=== PATIENT | female | born 1965 | race Caucasian/White ===

== ENCOUNTER 2018-07-30 21:00 | Emergency (ER) | payer OTHER ==
[2018-07-30] MEDS ORDERED: Ketorolac Tromethamine 30 MG/ML VIAL ONE (21:42)
[2018-07-30] MEDS ORDERED: Dexamethasone 10 MG/ML VIAL ONE (21:42)
[2018-07-30] MEDS ORDERED: Clindamycin/D5W 900 mg/50 ml Premix Bag ONE (21:42)
== END 2018-07-30 23:17 | disposition home or self-care (01) ==
LOC: ERS 21:00
DX: L03.211 Cellulitis of face (principal); R22.0 Localized swelling, mass and lump, head; I10 Essential (primary) hypertension; E78.5 Hyperlipidemia, unspecified; F17.210 Nicotine dependence, cigarettes, uncomplicated; Z79.899 Other long term (current) drug therapy; Z79.84 Long term (current) use of oral hypoglycemic drugs
CPT/HCPCS: 96365; 96375; J1100; J1885; J3490

== ENCOUNTER 2018-10-12 18:56 | Emergency (ER) | payer OTHER ==
[2018-10-12] MEDS ORDERED: Lidocaine 1% w/Epinephrine 1:100K 20 ML VIAL ONE ×2 (19:40→19:44)
[2018-10-12] MEDS ORDERED: Adacel (T-DAP) 0.5 ML VIAL ONE (19:44)
== END 2018-10-12 20:03 | disposition home or self-care (01) ==
LOC: ERS 18:56
DX: S41.112A Laceration without foreign body of left upper arm, initial encounter (principal); I10 Essential (primary) hypertension; E78.5 Hyperlipidemia, unspecified; E23.2 Diabetes insipidus; F17.210 Nicotine dependence, cigarettes, uncomplicated; W25.XXXA Contact with sharp glass, initial encounter
CPT/HCPCS: 12001; 90471; 90715; J2001

== ENCOUNTER 2018-10-12 22:24 | Emergency (ER) | payer OTHER ==
[2018-10-12] MEDS ORDERED: Lidocaine 1% w/Epinephrine 1:100K 20 ML VIAL ONE (23:12)
== END 2018-10-12 23:30 | disposition home or self-care (01) ==
LOC: ERS 22:24
DX: T81.30XA Disruption of wound, unspecified, initial encounter (principal); I10 Essential (primary) hypertension; E11.9 Type 2 diabetes mellitus without complications; F17.210 Nicotine dependence, cigarettes, uncomplicated
CPT/HCPCS: 12020; 90715; J2001

== ENCOUNTER 2019-06-14 15:03 | Outpatient (CLI) | payer OTHER ==
--- NOTE | 2019-06-14 20:06 | CT ---
CT OF THE PARANASAL SINUSES: 06/14/19 COMPARISON: 02/03/16 HISTORY: Chronic sinusitis, prior pituitary surgery. TECHNIQUE: Axial CT imaging at 2.5 mm interval through the paranasal sinuses with coronal and sagittal reformatt ed imaging. FINDINGS: The imaged brain parenchyma appears grossly unremarkable. There is evidence of a prior right sided cr aniotomy. The frontal sinuses are well aerated. The patient appears status post bilateral ethmoidecto my. Ethmoid air cells, sphenoid sinuses, and maxillary sinuses are clear. There is near complete opac ification of the mastoid air cells on the left. The mastoid air cells on the right are clear. The patient is status post bilateral uncinectomy and medial antrostomy. The orbital floor and the medial orbital wall appears intact. No acute osseous abnormality is seen. The sella turcica is not well assessed on this examination. Brain MRI would be required to evaluate p ostoperative changes at the level of the sella turcica. There is soft tissue density in the suprasell ar cistern which appears similar when compared to a brain MRI performed 09/09/16. There is a 1.1 cm round mass in the region of the superficial lobe right parotid gland posteriorly. IMPRESSION: 1. Opacified mastoid air cells on the left. 2. Paranasal sinuses are clear. There is evidence of prior paranasal sinus surgery. 3. Soft tissue density seen in the suprasellar region measuring approximately 7-8 mm in AP dimen ivette, as seen on 09/09/16 brain MRI. 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 Of note, the opacification of the left mastoid air cells is a new finding when compared to 09/09/16 b rain MRI. 4. Soft tissue round mass within the parotid gland on the right measuring 1.1 cm. Recommend furt her assessment via CT of the neck with IV contrast. Code T POS: OFF
== END 2019-06-14 15:04 | disposition home or self-care (01) ==
LOC: CT 15:03
PROVIDERS: ATTEND Otolaryngology Plastic Surgery within the Head & Neck
DX: J01.81 Other acute recurrent sinusitis (principal); K11.8 Other diseases of salivary glands; R93.0 Abnormal findings on diagnostic imaging of skull and head, not elsewhere classified; Z98.890 Other specified postprocedural states

== ENCOUNTER 2019-08-16 12:03 | Outpatient (CLI) | payer OTHER ==
[2019-08-16] MEDS ORDERED: Gadobenate Dimeglumine 529 MG/1 ML (20ML VIAL) ONE (12:52)
--- NOTE | 2019-08-16 14:18 | MRI ---
MRI BRAIN WITH AND WITHOUT CONTRAST: Date: 08/16/19 INDICATION: Follow-up benign neoplasm of brain. Comparison made to prior MRI brain dated 09/09/16 and 07/06/14. FINDINGS: Ventricles have normal size and position. The suprasellar mass lesion is again seen. This suprasellar mass shows high T1 signal and measures 8 mm AP dimension. It is unchanged in size and appearance whe n compared to the prior study. No abnormal enhancement identified. No significant white matter abnormality. Intracranial internal carotid arteries and cerebral arteries show expected flow-voids. New on today's exam is diffuse mucosal edema in the left mastoid air cells. Paranasal sinuses appear clear. IMPRESSION: 1. 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 2. Diffuse mucosal edema in the left mastoid air cells is seen today, a new finding. POS: [facility]
== END 2019-08-16 12:04 | disposition home or self-care (01) ==
LOC: BICMRI 12:03
PROVIDERS: ATTEND Specialist
DX: G43.909 Migraine, unspecified, not intractable, without status migrainosus (principal); R41.3 Other amnesia; G93.89 Other specified disorders of brain; H74.8X2 Other specified disorders of left middle ear and mastoid; Z86.011 Personal history of benign neoplasm of the brain
CPT/HCPCS: 70553; 82565; A9577

== ENCOUNTER 2019-10-05 14:40 | Outpatient (CLI) | payer OTHER ==
--- NOTE | 2019-10-05 15:35 | RAD ---
PA AND LATERAL VIEWS CHEST: 10/05/19 HISTORY: Cough and shortness of breath. Chest pain. FINDINGS: The heart size is normal. The lungs are expanded without area of consolidation, pneumothoraces or ple ural effusions. No acute osseous abnormalities are seen. IMPRESSION: No radiographic evidence of acute cardiopulmonary process. POS: OFF
== END 2019-10-05 14:41 | disposition home or self-care (01) ==
LOC: BICRAD 14:40
PROVIDERS: ATTEND Nurse Practitioner Family
DX: R05 Cough (principal); R06.02 Shortness of breath
CPT/HCPCS: 71046

== ENCOUNTER 2019-10-19 11:06 | Emergency (ER) | payer OTHER ==
[2019-10-19] MEDS ORDERED: Iopamidol-370 76% 500 ML 1 ML ONE (11:48)
[2019-10-19] MEDS ORDERED: Clindamycin/D5W 900 mg/50 ml Premix Bag ONE (13:39)
[2019-10-19] MEDS ORDERED: HYDROcodone/Acetaminophen 5/325 mg Tablet ONE (13:39)
[2019-10-19 14:00] LABS: Mean Corpuscular HGB CONC 33.2 g/dL (32.0-36.0); Mean Corpuscular Hemoglobin 30.5 pg (27.0-31.0); Mean Corpuscular Volume 91.9 fL (78.0-98.0); Mean Platelet Volume 8.1 fL (7.4-10.4); Platelet Count 283 thou/uL (130-400); RBC Distribution Width 16.2 % (11.5-14.5); Red Blood Cell (RBC) Count 4.25 mill/uL (4.20-5.40); White Blood Cell (WBC) Count 14.7 thou/uL (4.8-10.8)
[2019-10-19 14:27] LABS: Anisocytosis SLIGHT = 6-15 cells (100X) (0-5/hpf); Band 9 % (5-11); Eosinophils 1 % (0-10); Lymphocytes 12 % (21-51); MDiff Complete? YES; Monocytes 6 % (0-10); Neutrophil 72 % (42-75); Ovalocytes SLIGHT = 2-5 cells (100X) (0-1/hpf); Platelet Morphology Comment Appears Adequate
[2019-10-19 15:31] LABS: Chloride 106 mmol/L (98-107); Potassium 3.3 mmol/L (3.5-5.1); Sodium 140 mmol/L (136-145)
[2019-10-19 15:32] LABS: Calcium 9.2 mg/dL (7.8-10.44); Glucose 89 mg/dL (70-105)
[2019-10-19 15:34] LABS: Anion Gap 12 mmol/L (10-20); Carbon Dioxide 25 mmol/L (22-29)
[2019-10-19 15:36] LABS: BUN (Urea Nitrogen) 16 mg/dL (9.8-20.1); Calc. Creatinine Clearance 0 mL/min (70-130); Estimated GFR-MDRD 71
--- NOTE | 2019-10-19 16:39 | CT ---
CT FACIAL BONES WITH CONTRAST: Date: 10/19/19 INDICATION: Left facial swelling and tenderness. FINDINGS: Soft tissue windows show fluid density along the buccal surface of the left maxilla. There is hazines s in the subcutaneous adipose tissue at this location also seen consistent with edema and inflammatio n. Bone windows show abnormal lucency in the roots of the first maxillary premolar on the left. There is cortical erosion from the lateral root along the buccal surface. Findings are consistent with periap ical abscess with buccal extension. Paranasal sinuses are well aerated. There is mild mucosal edema in the left maxillary sinus periphera lly. There is evidence of prior sinus surgery with anteromeatal windows. Mild septal deviation to the right. There are postoperative changes involving the right frontal bone. IMPRESSION: Evidence of periapical abscess involving the first maxillary premolar on the left with buccal extensi on. Small abscess along the buccal surface of the left maxilla at this location is seen. Small fluid/ abscess collection measures approximately 3 x 12 mm in axial plane. There is overlying subcutaneous h aziness consistent with inflammation. POS: [facility]
== END 2019-10-19 16:11 | disposition home or self-care (01) ==
LOC: ERS 11:06
DX: K04.7 Periapical abscess without sinus (principal)
CPT/HCPCS: 70487; 80048; 85025; 96365; J3490; Q9967

== ENCOUNTER 2020-03-21 15:02 | Outpatient (CLI) | payer OTHER ==
--- NOTE | 2020-03-21 15:27 | RAD ---
Cervical spine 3 views HISTORY: Pain. FINDINGS: Vertebral body heights are maintained. Minimal physiologic anterior listhesis at the C5-6 l evel. Disc space narrowing at the C6-7 and C7-T1 levels. Mild osteophytosis throughout. No acute fracture or dislocation. No aggressive osseous erosions. IMPRESSION : Mild osteoarthritic changes. No acute osseous abnormalities are demonstrated.
== END 2020-03-21 15:03 | disposition home or self-care (01) ==
LOC: BICRAD 15:02
PROVIDERS: ATTEND Specialist
DX: M54.2 Cervicalgia (principal); M47.812 Spondylosis without myelopathy or radiculopathy, cervical region
CPT/HCPCS: 72040

== ENCOUNTER 2020-07-23 19:01 | Emergency (ER) | payer OTHER ==
[2020-07-23] MEDS ORDERED: Ketorolac Tromethamine 30 MG/ML VIAL ONE (20:30)
[2020-07-23] MEDS ORDERED: Morphine 4 MG/ML VIAL ONE (20:30)
--- NOTE | 2020-07-23 20:53 | CT ---
CT BRAIN PERFORMED WITHOUT CONTRAST ENHANCEMENT: History: Multiple falls in the last week, headache. Back and neck pain. FINDINGS: There is mild ventricular and sulcal prominence. There are no signs of intracerebral hemorrhage or ex traaxial fluid collections. Right frontal craniotomy changes noted. Mastoid air cells and visualized sinuses are clear. IMPRESSION: No acute intracranial abnormalities. POS: OFF
--- NOTE | 2020-07-23 20:58 | CT ---
CT OF CERVICAL SPINE PERFORMED WITHOUT CONTRAST ENHANCEMENT: History: Multiple falls in the last week. Patient has neck pain. FINDINGS: The bones appear somewhat demineralized. The vertebral bodies maintain normal height. There is disc n arrowing at the C3-4 level and an anterolisthesis of approximately 4 mm. There are degenerative facet changes which are most pronounced on the right side at the C3-4 level. There is also disc narrowing at C6-7. There is no evidence of any central canal stenosis. No significant foraminal narrowing. No C T evidence for fracture. The lung apices appear clear. IMPRESSION: No CT evidence of fracture of the cervical spine. POS: OFF
--- NOTE | 2020-07-23 20:59 | RAD ---
PORTABLE CHEST: History: Multiple falls. FINDINGS: Heart size and mediastinum are within normal limits. The lungs are clear of any infiltrates. No rib f ractures. IMPRESSION: No active intrathoracic disease. POS: OFF
--- NOTE | 2020-07-23 21:02 | CT ---
CT OF LUMBAR SPINE PERFORMED WITHOUT CONTRAST ENHANCEMENT: History: Multiple falls in the past week. Back pain. FINDINGS: The bones are demineralized. The vertebral bodies maintain normal height. Vacuum disc phenomenon are seen at the L3-4, L4-5, and L5-S1 levels without any significant disc narrowing. Degenerative facet c hanges are present. No spondylolisthesis. No significant periaortic adenopathy. The visualized portio ns of the kidneys are normal. No fractures are identified. Visualized portion of the sacrum is normal. At L3-4 there is some borderline canal narrowing. The L4-5 level shows a mild to moderate degree of c anal stenosis with disc bulge and facet changes. No foraminal stenosis. IMPRESSION: No acute findings. Incidental findings as noted above. POS: OFF
[2020-07-23 21:05] LABS: #Basophils 0.1 thou/uL (0.0-0.2); #Eosinphils 0.4 thou/uL (0.0-0.7); #Lymphocytes 2.6 thou/uL (1.20-3.40); #Monocytes 0.6 thou/uL (0.11-0.59); #Neutrophils 6.4 thou/uL (1.40-6.50); %Eosinophils 3.8 % (0.0-10.0); %Lymphocytes 25.5 % (21.0-51.0); %Monocytes 6.4 % (0.0-10.0); %Neutrophils 63.3 % (42.0-75.0); Hemoglobin 12.4 g/dL (12.0-16.0); Mean Corpuscular HGB CONC 32.7 g/dL (32.0-36.0); Mean Corpuscular Hemoglobin 31.1 pg (27.0-31.0); Mean Corpuscular Volume 95.3 fL (78.0-98.0); Mean Platelet Volume 7.3 fL (7.4-10.4); Platelet Count 268 thou/uL (130-400); RBC Distribution Width 14.9 % (11.5-14.5); Red Blood Cell (RBC) Count 3.98 mill/uL (4.20-5.40)
[2020-07-23 21:12] LABS: ALT (SGPT) 50 U/L (8-55); AST (SGOT) 45 U/L (5-34); Alkaline Phosphatase 99 U/L (40-110); Anion Gap 15 mmol/L (10-20); BUN (Urea Nitrogen) 21 mg/dL (9.8-20.1); Bilirubin, Total 0.2 mg/dL (0.2-1.2); Calc. Creatinine Clearance 0 mL/min (70-130); Calcium 8.9 mg/dL (7.8-10.44); Carbon Dioxide 24 mmol/L (22-29); Chloride 105 mmol/L (98-107); Estimated GFR-MDRD 57; Globulin 2.8 g/dL (2.4-3.5); Glucose 158 mg/dL (70-105); Magnesium 1.5 mg/dL (1.6-2.6); Potassium 3.2 mmol/L (3.5-5.1); Protein, Total 6.8 g/dL (6.0-8.3); Sodium 141 mmol/L (136-145)
[2020-07-23] MEDS ORDERED: HYDROcodone/Acetaminophen 5/325 mg Tablet ONE (22:22)
[2020-07-23] MEDS ORDERED: Acetaminophen 325 MG TAB ONE (22:23)
== END 2020-07-23 22:45 | disposition home or self-care (01) ==
LOC: ERS 19:01
DX: M54.5 Low back pain (principal); I10 Essential (primary) hypertension; E78.5 Hyperlipidemia, unspecified; F17.210 Nicotine dependence, cigarettes, uncomplicated; W01.10XA Fall on same level from slipping, tripping and stumbling with subsequent striking against unspecified object, initial encounter
CPT/HCPCS: 36415; 70450; 71045; 72125; 72131; 80053; 83735; 85025; 96374; 96375; J1885; J2270

== ENCOUNTER 2021-05-13 08:32 | Outpatient (CLI) | payer OTHER ==
[2021-05-13 09:32] LABS: Bilirubin Neg (Negative); Blood, Urine Negative (Negative); Clarity Clear (Clear); Glucose, Urine (Dipstick) Normal (Negative); Ketone, Urine Negative (Negative); Leukocyte Negative (Negative); Nitrite Negative (Negative); Protein, Urine (Dipstick) Negative (Neg-Trace); Specific Gravity, Urine 1.015 (1.002-1.036); Urobilinogen Normal mg/dL (Less than 2)
[2021-05-13 09:53] LABS: #Basophils 0.1 10x3/uL (0.0-0.2); #Eosinphils 0.1 10x3/uL (0.0-0.5); #Neutrophils 11.3 10x3/uL (1.5-8.4); %Basophils 0.7 % (0.0-2.0); %Eosinophils 0.5 % (0.0-6.0); %Lymphocytes 20.2 % (18.0-47.0); %Monocytes 6.1 % (0.0-10.0); %Neutrophils 69.8 % (40.0-75.0); Mean Corpuscular HGB CONC 33.8 g/dL (32.0-36.0); Mean Corpuscular Hemoglobin 30.8 pg (27.0-33.0); Mean Corpuscular Volume 91.2 fl (81.6-98.3); Mean Platelet Volume 9.2 fl (7.4-10.4); Platelet Count 350 10x3/uL (150-450); RBC Distribution Width 16.2 % (11.5-14.5); Red Blood Cell (RBC) Count 4.54 10x6/uL (3.90-5.03); White Blood Cell (WBC) Count 16.1 10x3/uL (3.5-10.5)
[2021-05-13 09:59] LABS: Bacteria/HPF None Seen HPF (None Seen); RBC/HPF 0-3 HPF (0-3); Squamous Epithelial None Seen HPF (0-3); WBC/HPF None Seen HPF (0-3)
[2021-05-13 19:50] LABS: SARS-CoV-2 PCR by NAA Not Detected (NotDetected)
== END 2021-05-13 08:33 | disposition home or self-care (01) ==
LOC: LABBT 08:32
PROVIDERS: ATTEND Orthopaedic Surgery Hand Surgery
DX: Z01.818 Encounter for other preprocedural examination (principal); M65.4 Radial styloid tenosynovitis [de Quervain]; Z20.822 Contact with and (suspected) exposure to COVID-19
CPT/HCPCS: 81001; 85025; 93005; 93010; U0003; U0005

== ENCOUNTER 2021-05-14 07:57 | Day surgery (SDC) | payer OTHER ==
[2021-05-13 13:56] VITALS: BMI 38.7
[2021-05-14] MEDS ORDERED: Bupivacaine PF 0.5% 30 ML VIAL ONE (09:15)
[2021-05-14] MEDS ORDERED: Betamet Acet/Betamet Na Ph 30 MG/5 ML VIAL ONE (09:15)
[2021-05-14] MEDS ORDERED: Bacitracin Zinc Ointment 30 gm TUBE ONE (09:15)
[2021-05-14] MEDS ORDERED: Fentanyl 100 MCG/2 ML VIAL ONE (09:25)
[2021-05-14] MEDS ORDERED: Dexamethasone 20 MG/5 ML VIAL ONE (09:44)
[2021-05-14] MEDS ORDERED: Ketorolac Tromethamine 30 MG/ML VIAL ONE (09:44)
[2021-05-14] MEDS ORDERED: Ondansetron PF 4 MG/2 ML Vial ONE (09:44)
[2021-05-14] MEDS ORDERED: PROPOFOL 200 MG/20 ML VIAL ONE (09:44)
[2021-05-14] MEDS ORDERED: Lidocaine 1% PF 5 ML VIAL ONE (09:44)
== END 2021-05-14 12:07 | disposition home or self-care (01) ==
LOC: SDC 07:57
PROVIDERS: ATTEND Orthopaedic Surgery Hand Surgery
PROC: 0LB70ZZ Excision of Right Hand Tendon, Open Approach (ICD-10-PCS; principal; 2021-05-14)
DX: M65.4 Radial styloid tenosynovitis [de Quervain] (principal); E78.00 Pure hypercholesterolemia, unspecified; E03.9 Hypothyroidism, unspecified; E78.5 Hyperlipidemia, unspecified; F17.210 Nicotine dependence, cigarettes, uncomplicated; M17.10 Unilateral primary osteoarthritis, unspecified knee; Z79.899 Other long term (current) drug therapy; Z91.040 Latex allergy status; Z91.048 Other nonmedicinal substance allergy status
CPT/HCPCS: 88305; J0690; J0702; J1100; J1885; J2405; J2704; J3010; S0020

== ENCOUNTER 2021-08-15 10:33 | Outpatient (CLI) | payer OTHER | END 2021-08-15 10:34 | disposition home or self-care (01) | LOC: BICCT 10:33 | PROVIDERS: ATTEND Otolaryngology Plastic Surgery within the Head & Neck | DX: J32.9 Chronic sinusitis, unspecified (principal); H74.8X2 Other specified disorders of left middle ear and mastoid; J34.89 Other specified disorders of nose and nasal sinuses; Z98.890 Other specified postprocedural states ==

== ENCOUNTER 2022-05-07 07:30 | Outpatient (CLI) | payer OTHER ==
[2022-05-07] MEDS ORDERED: ISOVUE-370 76%-LOCM 1 ML ONE (08:00)
== END 2022-05-07 07:31 | disposition home or self-care (01) ==
LOC: BICCT 07:30
PROVIDERS: ATTEND Physician Assistant Medical
DX: K52.9 Noninfective gastroenteritis and colitis, unspecified (principal); R10.30 Lower abdominal pain, unspecified; K63.89 Other specified diseases of intestine
CPT/HCPCS: 74177; Q9966

== ENCOUNTER 2022-05-22 10:27 | Outpatient (CLI) | payer OTHER ==
[~2022-05-22 10:27] MED LIST: Gadobenate Dimeglumine 529 MG/1 ML (20ML VIAL) ONE
== END 2022-05-22 10:28 | disposition home or self-care (01) ==
LOC: BICMRI 10:27
PROVIDERS: ATTEND Specialist
DX: R51.9 Headache, unspecified (principal); G93.9 Disorder of brain, unspecified
CPT/HCPCS: 70553; 82565; A9577

== ENCOUNTER 2022-06-02 11:58 | Outpatient (CLI) | payer OTHER | END 2022-06-02 11:59 | disposition home or self-care (01) | LOC: RAD 11:58 | PROVIDERS: ATTEND Specialist | DX: M25.561 Pain in right knee (principal); Z96.651 Presence of right artificial knee joint ==

== ENCOUNTER 2022-06-27 12:57 | Outpatient (CLI) | payer OTHER | END 2022-06-27 12:58 | disposition home or self-care (01) | LOC: BICCT 12:57 | PROVIDERS: ATTEND Family Medicine Sports Medicine | DX: Z47.1 Aftercare following joint replacement surgery (principal); Z96.651 Presence of right artificial knee joint ==

== ENCOUNTER 2023-06-19 18:18 | Emergency (ER) | payer OTHER ==
[2023-06-19 19:41] LABS: #Basophils 0.1 thou/uL (0.0-0.2); #Eosinphils 0.1 thou/uL (0.0-0.7); #Monocytes 0.7 thou/uL (0.11-0.59); #Neutrophils 8.5 thou/uL (1.40-6.50); %Basophils 0.9 % (0.0-1.0); %Eosinophils 0.8 % (0.0-10.0); %Lymphocytes 7.7 % (21.0-51.0); %Monocytes 6.9 % (0.0-10.0); %Neutrophils 82.9 % (42.0-75.0); Hemoglobin 12.5 g/dL (12.0-16.0); Mean Corpuscular HGB CONC 33.7 g/dL (32.0-36.0); Mean Corpuscular Hemoglobin 31.6 pg (27.0-31.0); Mean Corpuscular Volume 93.9 fl (78.0-98.0); Mean Platelet Volume 9.5 fL (7.4-10.4); Platelet Count 227 10x3/uL (130-400); RBC Distribution Width 14.9 % (11.5-14.5); Red Blood Cell (RBC) Count 3.95 mill/uL (4.20-5.40); White Blood Cell (WBC) Count 10.2 10x3/uL (4.8-10.8)
[2023-06-19 19:53] LABS: Bacteria/HPF None Seen HPF (None Seen); Bilirubin Negative (Negative); Blood, Urine Negative (Negative); CAUTI Indications for Culture Fever or rigors; Clarity Clear (Clear); Glucose, Urine (Dipstick) Normal (Negative); Ketone, Urine Negative (Negative); Leukocyte 25 Leu/uL (Negative); Nitrite Negative (Negative); Protein, Urine (Dipstick) Negative (Neg-Trace); RBC/HPF 0-3 HPF (0-3); Specific Gravity, Urine 1.022 (1.002-1.036); Squamous Epithelial 0-3 HPF (0-3); Urobilinogen Normal mg/dL (Less than 2)
[2023-06-19 19:55] LABS: Urine Culture Reflex No No
[2023-06-19 20:05] LABS: ALT (SGPT) 59 U/L (8-55); AST (SGOT) 50 U/L (5-34); Albumin 4.2 g/dL (3.5-5.0); Alkaline Phosphatase 141 U/L (40-110); Anion Gap 16 mmol/L (10-20); BUN (Urea Nitrogen) 22 mg/dL (9.8-20.1); Bilirubin, Total 0.3 mg/dL (0.2-1.2); Calc. Creatinine Clearance 0 mL/min (70-130); Calcium 9.2 mg/dL (7.8-10.44); Carbon Dioxide 23 mmol/L (22-29); Chloride 104 mmol/L (98-107); Estimated GFR 57; Globulin 2.8 g/dL (2.4-3.5); Glucose 118 mg/dL (70-105); Lipase 38 U/L (8-78); Sodium 140 mmol/L (136-145)
[2023-06-19 20:43] LABS: SARS-CoV-2 NAA Rapid Test DETECTED (NotDetected)
[2023-06-19] MEDS ORDERED: Dexamethasone 10 MG/ML VIAL ONE (21:10)
[2023-06-19] MEDS ORDERED: Amoxicillin/Potassium Clav 875 MG TAB ONE (21:10)
[2023-06-19] MEDS ORDERED: HYDROcodone/Acetaminophen 5/325 mg Tablet ONE (21:10)
== END 2023-06-19 21:49 | disposition home or self-care (01) ==
LOC: ERS 18:18
DX: U07.1 COVID-19 (principal); J01.90 Acute sinusitis, unspecified; I10 Essential (primary) hypertension; E78.5 Hyperlipidemia, unspecified
CPT/HCPCS: 36415; 71045; 80053; 81001; 83605; 83690; 83880; 84484; 85025; 87040; 93005; 96374; J1100

== ENCOUNTER 2024-10-18 09:43 | Emergency (ER) | payer OTHER | END 2024-10-18 10:35 | disposition home or self-care (01) | LOC: ERS 09:43 | DX: R04.0 Epistaxis (principal); I10 Essential (primary) hypertension | CPT/HCPCS: 99283 ==

== ENCOUNTER 2025-07-06 09:44 | Outpatient (CLI) | payer MEDICAID, OTHER | END 2025-07-06 09:45 | disposition home or self-care (01) | LOC: RAD 09:44 | PROVIDERS: ATTEND Internal Medicine Critical Care Medicine | DX: R06.00 Dyspnea, unspecified (principal) | CPT/HCPCS: 71046 ==